=== PATIENT | female | born 1995 | race Caucasian/White ===

== ENCOUNTER 2017-08-28 12:13 | Observation (INO) | payer OTHER ==
[2017-08-28] MEDS ORDERED: RINGERS SOLUTION,LACTATED 1,000 ML IV PRN (13:28)
[2017-08-28] MEDS ORDERED: ACETAMINOPHEN WITH CODEINE #3 TABLET PO PRN (13:29)
[2017-08-28] MEDS ORDERED: PROMETHAZINE HCL INJ 25 MG/1 ML VIAL IV PRN (13:29)
[2017-08-28] MEDS: ACETAMINOPHEN 325 MG TABLET PO SCH ×2 (17:38→23:50)
[2017-08-28] MEDS: CEFTRIAXONE SODIUM 1,000 MG in DEXTROSE 5%-WATER 50 ML IV SCH (17:45)
[2017-08-29] MEDS: ACETAMINOPHEN 325 MG TABLET PO SCH (05:25)
[2017-08-29] MEDS: CEFTRIAXONE SODIUM 1,000 MG in DEXTROSE 5%-WATER 50 ML IV SCH (05:26)
[2017-08-29 06:38] LABS: HEMATOCRIT 34.3 % (36.0-47.0); MEAN CORPUSCULAR HEMOGLOBIN 28.6 pg (27.0-33.4); MEAN CORPUSCULAR HGB CONC 35.1 g/dL (32.0-36.0); MEAN CORPUSCULAR VOLUME 82 fl (80-97); PLATELET COUNT 167 10^3/uL (150-450); RED BLOOD COUNT 4.21 10^6/uL (3.72-5.28); RED CELL DISTRIBUTION WIDTH 13.3 % (11.5-14.0); WHITE BLOOD COUNT 12.2 10^3/uL (4.0-10.5)
--- NOTE | 2017-08-29 09:55 | PDOC DISCHARGE SUMMARY ---
General - Admit/Disc Date/PCP Admission Date/Primary Care Provider: 08/28/17 12:44 CAITY KNOTT MD Discharge Date: 08/29/17 - Discharge Diagnosis (1) Pyelonephritis affecting in first trimester Is this a current diagnosis for this admission?: Yes - Additional Information Resuscitation Status: Full Code Home Medications: Vit/Iron Fum/Folic AC [ Tablet] 1 tab PO DAILY 08/16/15 Docusate Sodium [Colace 100 mg Capsule] 100 mg PO BID #60 capsule 08/20/15 Ferrous Sulfate [Feosol 325 mg Tablet] 325 mg PO BID #60 tablet 08/20/15 Ibuprofen [Motrin 800 mg Tablet] 800 mg PO Q8 #60 tablet 08/20/15 Labetalol HCl [Normodyne 200 mg Tablet] 100 mg PO Q12 #60 tablet 08/20/15 History of Present Illness History of Present Illness: SHARIFA CLEMENTS is a 22 year old female who presented with evidence of pyelo and was sent for iv antibiotics. Has responded well and ready for discharge home Hospital Course Hospital Course: see HPI Physical Exam - Physical Exam Vital Signs: Temp Pulse Resp BP Pulse Ox 98.2 F 92 18 103/63 100 08/29/17 08:13 08/29/17 08:13 08/29/17 08:13 08/29/17 08:13 08/29/17 08:13 Intake & Output 08/28/17 08/29/17 08/30/17 06:59 06:59 06:59 Intake Total 450 1000 Output Total 750 Balance 450 250 Weight 50.9 kg General appearance: PRESENT: no acute distress, cooperative GI/Abdominal exam: PRESENT: soft - no CVA tenderness on palpation. Result Laboratory Results: 08/29/17 06:11 08/29/17 06:11 WBC 12.2 H RBC 4.21 Hgb 12.0 Hct 34.3 L MCV 82 MCH 28.6 MCHC 35.1 RDW 13.3 Plt Count 167 Plan Discharge Plan: discharge home with Keflex and phenergan for nausea. Will follow up in clinic in 1-2 wks. Time Spent: Less than 30 Minutes
[2017-08-29 10:16] VITALS: BP 120/69
== END 2017-08-29 11:43 | disposition home or self-care (01) ==
LOC: 2N 12:13 → UNDOADMOB 12:13 → 2N 12:44
PROVIDERS: ADMIT Obstetrics & Gynecology Gynecology; ATTEND Obstetrics & Gynecology Gynecology
DX: O23.01 Infections of kidney in pregnancy, first trimester (principal); Z87.59 Personal history of other complications of pregnancy, childbirth and the puerperium
CPT/HCPCS: 36415; 87086; 85027; 87088; 87186; J2550; J0696 ×2; J7120; G0378

== ENCOUNTER 2017-10-04 12:05 | Emergency (ER) | payer OTHER ==
--- NOTE | 2017-10-04 12:40 | ER Document Report ---
ED Medical Screen (RME) - General Chief Complaint: OB Problem (<20wks) Stated Complaint: VAGINAL BLEEDING Time Seen by Provider: 10/04/17 12:30 TRAVEL OUTSIDE OF THE [place] IN LAST 30 DAYS: No - HPI Patient complains to provider of: Painless vaginal bleeding Onset: Just prior to arrival - 22-year-old female presents for evaluation of an episode of painless vaginal bleeding this morning while going to the bathroom, noted to pass large blood clot as well as some bright red blood spotting on the paper as if she might be starting her menses. She has had no associated trauma pain nausea or other symptoms related to this. Never had any problems like this in the past, she is a - Related Data Allergies/Adverse Reactions: No Known Allergies Allergy (Verified 10/04/17 12:06) Past Medical History Neurological Medical History: Reports: Hx Migraine - Immunizations Hx Diphtheria, Pertussis, Tetanus Vaccination: Yes Physical Exam - Vital signs Vitals: Temp Pulse Resp BP Pulse Ox 98.2 F 67 12 126/79 H 100 10/04/17 12:11 10/04/17 12:11 10/04/17 12:11 10/04/17 12:11 10/04/17 12:11 Course - Re-evaluation Re-evalutation: 10/04/17 12:37 22-year-old female who presents at 13 weeks after painless vaginal bleeding this morning. She has not had issues with bleeding in the past , has had normal care with an ultrasound as recently as 3 days prior which demonstrated a viable IUP with normal development. We will plan for Rh type, will obtain urinalysis, will defer ultrasound to receiving provider. Patient's otherwise hemodynamically stable well-appearing at this time. - Vital Signs Vital signs: Temp Pulse Resp BP Pulse Ox 98.2 F 67 12 126/79 H 100 10/04/17 12:11 10/04/17 12:11 10/04/17 12:11 10/04/17 12:11 10/04/17 12:11 Doctor's Discharge - Discharge Referrals: CAITY KNOTT MD [Primary Care Provider] - Follow up as needed
--- NOTE | 2017-10-04 12:50 | ER Document Report ---
ED GI/ - General Chief Complaint: OB Problem (<20wks) Stated Complaint: VAGINAL BLEEDING Time Seen by Provider: 10/04/17 12:30 Notes: 22-year-old female patient emergency department with trace bleeding from the vagina. Patient is approximately 13-14 weeks . Has had ultrasound performed by ONCOLOGY RESEARCH RN. Was recently hospitalized for pyelonephritis. Patient denies any rigorous intercourse in the last 3 days. Denies any other major symptoms. No lower abdominal pain. No pelvic pain. No large clots. TRAVEL OUTSIDE OF THE [place] IN LAST 30 DAYS: No - HPI Patient complains to provider of: Vaginal bleeding Onset: Just prior to arrival Quality of pain: No pain Severity at maximum: Mild Severity in ED: Mild Pain Level: 0 - Related Data Allergies/Adverse Reactions: No Known Allergies Allergy (Verified 10/04/17 12:06) Past Medical History - General Information source: Patient - Social History Smoking Status: Never Smoker Frequency of alcohol use: None Drug Abuse: None Lives with: Spouse/Significant other Family History: Reviewed & Not Pertinent Patient has suicidal ideation: No Patient has homicidal ideation: No - Medical History Medical History: Negative Neurological Medical History: Reports: Hx Migraine Renal/ Medical History: Denies: Hx Peritoneal Dialysis - Immunizations Hx Diphtheria, Pertussis, Tetanus Vaccination: Yes Review of Systems - Review of Systems Notes: Constitutional: denies: Chills, Diaphoresis, Fever, Malaise, Weakness EENT: denies: Eye discharge, Blurred vision, Tearing, Double vision, Nose congestion, Nose discharge, Throat swelling, Mouth pain Cardiovascular: denies: Palpitations, Heart racing, Orthopnea, Dyspnea, Chest pain Respiratory: denies: Cough, Hurts to breathe, Wheezing, Shortness of breath Gastrointestinal: denies: Abdominal pain, Diarrhea, Nausea, Vomiting, Black stools, bright red blood in stool Genitourinary: Vaginal bleeding, , no pelvic pain, no flank pain no vaginal discharge. Musculoskeletal: denies: Joint pain, Joint swelling, Muscle pain, Muscle stiffness, back pain Hematologic/Lymphatic: denies: Anemia, Easy bleeding, Easy bruising, Blood clots Neurological/Psychological: denies: Confusion, Dementia, Depression, Loss of consciousness Skin: No lesions, no masses, no skin breakdown, no abscesses Physical Exam - Vital signs Vitals: Temp Pulse Resp BP Pulse Ox 98.2 F 67 12 126/79 H 100 10/04/17 12:11 10/04/17 12:11 10/04/17 12:11 10/04/17 12:11 10/04/17 12:11 Interpretation: Normal - General General appearance: Appears well, Alert - HEENT Head: Normocephalic, Atraumatic Eyes: Normal Pupils: PERRL - Respiratory Respiratory status: No respiratory distress Chest status: Nontender Breath sounds: Normal Chest palpation: Normal - Cardiovascular Rhythm: Regular Heart sounds: Normal auscultation Murmur: No - Abdominal Inspection: Normal Distension: No distension Bowel sounds: Normal Tenderness: Nontender Organomegaly: No organomegaly - Back Back: Normal, Nontender - Extremities General upper extremity: Normal inspection, Nontender, Normal color, Normal ROM , Normal temperature General lower extremity: Normal inspection, Nontender, Normal color, Normal ROM , Normal temperature, Normal weight bearing. No: Radha's sign - Neurological Neuro grossly intact: Yes Cognition: Normal Orientation: AAOx4 Mallie Coma Scale Eye Opening: Spontaneous Abigail Coma Scale Verbal: Oriented Mallie Coma Scale Motor: Obeys Commands Mallie Coma Scale Total: 15 Speech: Normal Motor strength normal: LUE, RUE, LLE, RLE Sensory: Normal - Psychological Associated symptoms: Normal affect, Normal mood - Skin Skin Temperature: Warm Skin Moisture: Dry Skin Color: Normal Course - Re-evaluation Re-evalutation: 10/04/17 13:24 This is a well-appearing pleasant 22-year-old nonobese 2 para 1 female with small amount of vaginal bleeding. No significant findings of UTI at this time. Bedside ultrasound shows intrauterine . Normal movement. heart tones in the 140s. No acute distress. Well-appearing fluid in the uterus. Patient will be positive. No significant risks at this time. I would give her threatened miscarriage follow-up information. Nothing further at this time. - Vital Signs Vital signs: Temp Pulse Resp BP Pulse Ox 98.2 F 67 12 126/79 H 100 10/04/17 12:11 10/04/17 12:11 10/04/17 12:11 10/04/17 12:11 10/04/17 12:11 - Laboratory Laboratory results interpreted by me: 10/04/17 12:44 Urine Blood SMALL H Urine HCG, Qual POSITIVE H Discharge - Discharge Clinical Impression: Threatened miscarriage in early Condition: Good Disposition: HOME, SELF-CARE Additional Instructions: Information for patients For active duty and dependents diagnosed with a threatened or miscarriage, you should follow up in the following manner: Standard patients who have a local civilian provider should follow up with that provider. Patients of the Family Practice Clinic should call your Team Nurse at 8:00 am the following morning for further instructions. If you are neither a Standard patient nor a patient of the Family Practice Clinic, you should follow up at the [facility] ([facility]) . Patients already enrolled in the [facility], [facility] patients not assigned to the [facility], and Active Duty patients not assigned to [facility] should report ot the [facility] at 8:00 am the next morning that the [facility] is open and then you will be seen in the OB Clinic at 11:00am. Threatened Miscarriage You have been evaluated for a possible miscarriage. At this time, there is no indication that a miscarriage will occur. Most women with your symptoms will go on to have a perfectly normal baby. However, careful observation will be necessary. A miscarriage occurs when the fetus is abnormal. There is no medicine or treatment for it. Do not douche or have sex for at least a week, or until OK'd by the doctor. Call the doctor or return for re-examination if there is an increase in bleeding or cramping, or passage of tissue, your soaking more than 2 pads per hour, passing out or severe pain. Referrals: CAITY KNOTT MD [Primary Care Provider] - 10/06/17 8:00 am
[2017-10-04 13:04] LABS: AMORPHOUS SEDIMENT,URINE TRACE /HPF; APPEARANCE,URINE CLOUDY; BILIRUBIN,URINE NEGATIVE (NEGATIVE); COLOR,URINE YELLOW; GLUCOSE, URINE NEGATIVE (NEGATIVE); KETONES,URINE NEGATIVE (NEGATIVE); LEUKOCYTE ESTERASE,URINE NEGATIVE (NEGATIVE); NITRITE,URINE NEGATIVE (NEGATIVE); PROTEIN,URINE NEGATIVE (NEGATIVE); URINE SPECIFIC GRAVITY 1.016; UROBILINOGEN,URINE NEGATIVE mg/dL (<2.0)
[2017-10-04 13:54] VITALS: BP 117/62
== END 2017-10-04 13:51 | disposition home or self-care (01) ==
LOC: ER 12:05
DX: O20.0 Threatened abortion (principal); O20.9 Hemorrhage in early pregnancy, unspecified; Z3A.14 14 weeks gestation of pregnancy
CPT/HCPCS: 81001; 81025; 87086; 99284

== ENCOUNTER → 2017-11-05 | Outpatient (CLI) | payer OTHER | LOC: OD 16:56 | PROVIDERS: ATTEND Obstetrics & Gynecology | DX: Z36.89 Encounter for other specified antenatal screening (principal) | CPT/HCPCS: 36415; 82105 ==